=== PATIENT | female | born 1955 | race Caucasian/White ===

== ENCOUNTER 2017-07-19 14:08 | Emergency (ER) | payer OTHER ==
[~2017-07-19] VITALS: Ht 162.6 cm; Wt 81.3 kg
[2017-07-19 14:25] LABS: POINT-OF-CARE METER ID UU13113778
[2017-07-19 15:37] LABS: MCH 28.8 PG (29.0-34.0); MCHC 33.6 G/DL (30.0-36.0); MCV 85.9 FL (83-99); MEAN PLAT.VOLUME 9.7 uM^3 (9.5-12.4); PLATELET COUNT 150 K/uL (156-360); RBC DIS.WIDTH-CV 12.6 % (11.8-14.6); RBC DIS.WIDTH-SD 39.3 % (39-53); RED BLOOD COUNT 4.89 M/uL (3.80-5.20); WHITE BLOOD COUNT 6.2 K/uL (4.1-10.2)
[2017-07-19 15:47] LABS: CHLORIDE 106 mEq/L (99-109); POTASSIUM 4.3 mEq/L (3.7-5.4); SODIUM 139 mEq/L (136-147)
[2017-07-19 15:49] LABS: GLUCOSE 256 mg/dL (70-99)
[2017-07-19 15:50] LABS: ANION GAP 12 MEQ/L (2-14)
[2017-07-19 15:54] LABS: UREA NITROGEN (BUN) 16 mg/dL (9-23)
[2017-07-19 15:55] LABS: GFR ESTIMATE (CALCULATED) > 59 mL/min/
[2017-07-19] MEDS ORDERED: BACTRIM,SEPT1 TABLET PO (19:06)
[2017-07-19] MEDS ORDERED: KEFLEX500 MG PO (19:07)
[2017-07-19 19:51] VITALS: BP 147/71
== END 2017-07-19 20:00 | disposition home or self-care (01) ==
LOC: EME 14:08
PROVIDERS: Physician Assistant
PROC: 0H9NXZZ Drainage of Left Foot Skin, External Approach (ICD-10-PCS; principal; 2017-07-19)
DX: L02.612 Cutaneous abscess of left foot (principal); L03.116 Cellulitis of left lower limb; S91.302A Unspecified open wound, left foot, initial encounter; X58.XXXA Exposure to other specified factors, initial encounter; E11.65 Type 2 diabetes mellitus with hyperglycemia
CPT/HCPCS: 73630; 80048; 83605; 85027; 87040; 99281; 99285; J2543; J3370; J7030